=== PATIENT | female | born 1945 | race Caucasian/White ===

== ENCOUNTER 2019-11-16 14:01 | Emergency (ER) | payer MEDICARE, BC ==
[~2019-11-16] VITALS: Ht 167.6 cm; Wt 75.0 kg
[2019-11-16 15:48] LABS: CLARITY,URINE CLOUDY (Clear); COLOR,URINE YELLOW (Yellow); GLUCOSE, URINE 250 mg/dl (Neg); KETONES,URINE 15 mg/dl (Neg); LEUKOCYTE ESTERASE ,URINE MODERATE (Neg); NITRITES, URINE NEGATIVE (Neg); OCCULT BLOOD,URINE LARGE (Neg); PROTEIN,URINE 30 mg/dl (Neg)
[2019-11-16 15:49] LABS: BASOPHILS % (AUTO) 0.7 % (0-1); EOSINOPHILS # (AUTO) 0.2 X10'3 (0-0.9); EOSINOPHILS % (AUTO) 3.1 % (0-6); HEMATOCRIT 39.9 % (35.0-45.0); HEMOGLOBIN 13.4 g/dl (12.0-16.0); LYMPHOCYTES # (AUTO) 2.2 X10'3 (1.1-4.8); LYMPHOCYTES % (AUTO) 30.8 % (21-51); MEAN CORPUSCULAR HEMOGLOBIN 32.3 PG (27.0-31.0); MEAN CORPUSCULAR HGB CONC 33.6 g/dL (33.0-36.5); MEAN CORPUSCULAR VOLUME 96.2 FL (78-98); MEAN PLATELET VOLUME 10.1 FL (7.4-10.4); MONOCYTES # (AUTO) 1.1 X10'3 (0-0.9); MONOCYTES % (AUTO) 14.8 % (2-12); NEUTROPHILS # (AUTO) 3.7 X10'3 (1.8-7.7); NEUTROPHILS % (AUTO) 50.6 % (42-75); PLATELET COUNT 166 X10'3 (140-440); RED BLOOD COUNT 4.15 X10'6 (4.20-5.60); RED CELL DISTRIBUTION WIDTH 12.9 % (11.5-14.5); WHITE BLOOD COUNT 7.2 X10'3 (4.5-11.0)
[2019-11-16 15:57] LABS: UA COLLECTION TYPE CLN CATCH MIDSTREAM
[2019-11-16 16:00] LABS: MUCUS STRANDS FEW /LPF (Neg); SQUAMOUS EPITHELIAL CELL,UR MANY /LPF (FEW)
[2019-11-16 16:01] LABS: WBC,URINE TNTC /HPF (0-4)
[2019-11-16 16:02] LABS: RENAL CELLS, URINE FEW /HPF
[2019-11-16 16:04] LABS: ALANINE AMINOTRANSFERASE 37 U/L (12-78); ALBUMIN 3.4 G/DL (3.4-5.0); ALBUMIN/GLOBULIN RATIO 0.8 (1.1-1.5); ALKALINE PHOSPHATASE 93 IU/L (46-116); ANION GAP 11 (8-16); ASPARTATE AMINO TRANSFERASE 30 U/L (10-37); BILIRUBIN,TOTAL 0.5 MG/DL (0.1-1.0); BLOOD UREA NITROGEN 35 MG/DL (7-18); BUN/CREATININE RATIO 26.3 (6.6-38.0); CALCIUM 9.5 MG/DL (8.5-10.1); CHLORIDE 99 MMOL/L (99-107); CREATININE 1.33 MG/DL (0.40-0.90); GLUCOSE 249 MG/DL (70-104); POTASSIUM 3.3 MMOL/L (3.5-5.1); SODIUM 136 MMOL/L (135-145); TOTAL CARBON DIOXIDE 25.9 MMOL/L (24-32); TOTAL PROTEIN 7.9 G/DL (6.4-8.2); eGFR 39 ML/MIN
[2019-11-16 16:06] LABS: BACTERIA,URINE 4+ /HPF (Neg)
[2019-11-16] MEDS ORDERED: normal saline 1000ML IV soln IVB ONE (16:25)
[2019-11-16] MEDS ORDERED: insulin regular, human 10 units/0.1 ml syringe SQ ONE (16:25)
[2019-11-16] MEDS ORDERED: CefTRIAXone/D5W-Rocephin 1gm 50 ML IV ONE (16:25)
[2019-11-16] MEDS ORDERED: CEPH-572 PO (16:58)
[2019-11-16 19:06] VITALS: BP 139/59
== END 2019-11-16 19:10 | disposition home or self-care (01) ==
LOC: ER 14:02
DX: N39.0 Urinary tract infection, site not specified (principal); N17.9 Acute kidney failure, unspecified; R06.02 Shortness of breath; R51.9 Headache, unspecified; R53.83 Other fatigue; Z20.828 Contact with and (suspected) exposure to other viral communicable diseases; E78.00 Pure hypercholesterolemia, unspecified; E11.9 Type 2 diabetes mellitus without complications; Z90.49 Acquired absence of other specified parts of digestive tract; Z90.89 Acquired absence of other organs; Z95.0 Presence of cardiac pacemaker; Z98.890 Other specified postprocedural states; Z88.8 Allergy status to other drugs, medicaments and biological substances; Z79.2 Long term (current) use of antibiotics
CPT/HCPCS: 36415; 71045; 80053; 81001; 82948; 85025; 87635; 96365; 99284; J0696; J1815; J7030

== ENCOUNTER 2020-02-26 15:06 | Emergency (ER) | payer MEDICARE, BC ==
[~2020-02-26] VITALS: Ht 167.6 cm; Wt 78.2 kg
[2020-02-26 15:31] VITALS: BP 122/66
[2020-02-26] MEDS ORDERED: ondansetron 4mg rapidly disintigrating tab PO ONE (16:25)
[2020-02-26] MEDS ORDERED: HYDROcodone/acetaminophen 5mg/325mg tablet PO ONE (16:25)
[2020-02-26] MEDS ORDERED: ONDA4TAB6 PO (16:36)
[2020-02-26] MEDS ORDERED: HYDR-3965 PO (16:36)
== END 2020-02-26 17:13 | disposition home or self-care (01) ==
LOC: ER 15:07
DX: S92.351A Displaced fracture of fifth metatarsal bone, right foot, initial encounter for closed fracture (principal); M79.671 Pain in right foot; E78.00 Pure hypercholesterolemia, unspecified; E11.9 Type 2 diabetes mellitus without complications; Z90.49 Acquired absence of other specified parts of digestive tract; Z95.0 Presence of cardiac pacemaker; Z90.89 Acquired absence of other organs; Z98.890 Other specified postprocedural states; Z88.8 Allergy status to other drugs, medicaments and biological substances; Z79.899 Other long term (current) drug therapy; X58.XXXA Exposure to other specified factors, initial encounter; Y93.89 Activity, other specified; Y92.89 Other specified places as the place of occurrence of the external cause; Y99.8 Other external cause status
CPT/HCPCS: 29515; 73610; 73630; 99284

== ENCOUNTER 2021-03-09 12:00 | Day surgery (SDC) | payer MEDICARE, BC ==
[~2021-03-09 12:00] MED LIST: ONDA4TAB6 PO
[2021-03-09] MEDS ORDERED: HYDR12.55 PO (15:17)
[2021-03-09] MEDS ORDERED: MAGN250T11 PO (15:17)
[2021-03-09] MEDS ORDERED: METF-436 PO (15:17)
[2021-03-09] MEDS ORDERED: ROSU20TA2 PO (15:17)
[2021-03-09] MEDS ORDERED: METO-395 PO (15:17)
[2021-03-09] MEDS ORDERED: ESTR42.510 VG (15:17)
[2021-03-09] MEDS ORDERED: MULT-1085 PO (15:17)
[2021-03-09] MEDS ORDERED: [UNRECOGNIZED DRUG - CODE] PO (15:17)
[2021-03-09] MEDS ORDERED: TRAZ-251 PO (15:17)
[2021-03-09] MEDS ORDERED: CHOL500049 PO (15:17)
[2021-03-09] MEDS ORDERED: MIRA25TA PO (15:17)
[2021-03-09] MEDS ORDERED: BUPR150T8 PO (15:17)
[2021-03-09] MEDS ORDERED: AMA1T PO (15:17)
[2021-03-09 15:19] LABS: BASOPHILS % (AUTO) 0.3 % (0-1); EOSINOPHILS # (AUTO) 0.1 X10'3 (0-0.9); EOSINOPHILS % (AUTO) 0.9 % (0-6); LYMPHOCYTES # (AUTO) 2.1 X10'3 (1.1-4.8); LYMPHOCYTES % (AUTO) 25.7 % (21-51); MEAN CORPUSCULAR HEMOGLOBIN 32.2 PG (27.0-31.0); MEAN CORPUSCULAR HGB CONC 33.8 g/dL (33.0-36.5); MEAN CORPUSCULAR VOLUME 95.5 FL (78-98); MEAN PLATELET VOLUME 9.8 FL (7.4-10.4); MONOCYTES # (AUTO) 0.7 X10'3 (0-0.9); MONOCYTES % (AUTO) 8.2 % (2-12); NEUTROPHILS # (AUTO) 5.3 X10'3 (1.8-7.7); NEUTROPHILS % (AUTO) 64.9 % (42-75); PRE OP HEMATOCRIT 42.4 % (35.0-45.0); PRE OP HEMOGLOBIN 14.3 g/dL (12.0-16.0); PRE OP PLATELET COUNT 159 X10'3 (140-440); RED BLOOD COUNT 4.45 X10'6 (4.20-5.60); RED CELL DISTRIBUTION WIDTH 13.1 % (11.5-14.5)
[2021-03-09 15:23] LABS: CLARITY,URINE CLOUDY (Clear); COLOR,URINE YELLOW (Yellow); GLUCOSE, URINE >=1000 mg/dl (Neg); KETONES,URINE NEGATIVE (Neg); LEUKOCYTE ESTERASE ,URINE TRACE (Neg); NITRITES, URINE NEGATIVE (Neg); OCCULT BLOOD,URINE NEGATIVE (Neg); PH,URINE 5.5 (4.8-8.0); PROTEIN,URINE NEGATIVE (Neg); UROBILINOGEN,URINE 0.2 E.U/dL (0.2-1.0)
[2021-03-09 15:41] LABS: UA COLLECTION TYPE CLN CATCH MIDSTREAM
[2021-03-09 15:45] LABS: BACTERIA,URINE 1+ /HPF (Neg); MUCUS STRANDS FEW /LPF (Neg); RBC,URINE NONE SEEN /HPF (0-2); SQUAMOUS EPITHELIAL CELL,UR MANY /LPF (FEW); WBC,URINE 50-100 /HPF (0-4)
[2021-03-09 15:58] LABS: ALBUMIN 3.7 G/DL (3.4-5.0); ALBUMIN/GLOBULIN RATIO 1.1 (1.1-1.5); ALKALINE PHOSPHATASE 113 IU/L (46-116); BLOOD UREA NITROGEN 24 MG/DL (7-18); CALCIUM 9.1 MG/DL (8.5-10.1); CHLORIDE 101 MMOL/L (99-107); CREATININE 1.33 MG/DL (0.40-0.90); PRE OP ALT 26 U/L (30-65); PRE OP ANION GAP 13 (8-16); PRE OP AST 20 U/L (10-37); PRE OP BILIRUB, TOTAL 0.2 MG/DL (0.0-1.0); PRE OP POTASSIUM 4.4 MMOL/L (3.4-5.1); PRE OP SODIUM 137 MMOL/L (135-145); TOTAL PROTEIN 7.1 G/DL (6.4-8.2); eGFR 39 ML/MIN
[2021-03-09 16:02] LABS: PRE OP GLUCOSE 336 MG/DL (70-104)
[2021-03-09 16:36] LABS: HEMOGLOBIN A1C 9.9 % (4.5-6.2)
== END 2021-03-09 23:59 | disposition home or self-care (01) ==
LOC: PRE-OP 12:00
PROVIDERS: ATTEND Podiatrist Foot & Ankle Surgery
DX: Z01.818 Encounter for other preprocedural examination (principal); M19.072 Primary osteoarthritis, left ankle and foot; M20.12 Hallux valgus (acquired), left foot; M20.42 Other hammer toe(s) (acquired), left foot; M21.6X2 Other acquired deformities of left foot; M25.375 Other instability, left foot; M77.42 Metatarsalgia, left foot; E11.9 Type 2 diabetes mellitus without complications; F32.A Depression, unspecified; I10 Essential (primary) hypertension; Z85.89 Personal history of malignant neoplasm of other organs and systems; Z95.0 Presence of cardiac pacemaker; Z20.822 Contact with and (suspected) exposure to COVID-19; Z79.899 Other long term (current) drug therapy; Z90.49 Acquired absence of other specified parts of digestive tract; Z98.41 Cataract extraction status, right eye; Z98.42 Cataract extraction status, left eye; Z98.890 Other specified postprocedural states
CPT/HCPCS: 36415; 80053; 81001; 83036; 85025; U0003; U0005

== ENCOUNTER 2021-05-14 06:54 | Day surgery (SDC) | payer MEDICARE, BC ==
[2021-05-04 16:40] LABS: BASOPHILS % (AUTO) 0.4 % (0-1); EOSINOPHILS # (AUTO) 0.2 X10'3 (0-0.9); EOSINOPHILS % (AUTO) 2.6 % (0-6); LYMPHOCYTES # (AUTO) 2.7 X10'3 (1.1-4.8); LYMPHOCYTES % (AUTO) 35.8 % (21-51); MEAN CORPUSCULAR HGB CONC 33.1 g/dL (33.0-36.5); MEAN CORPUSCULAR VOLUME 96.6 FL (78-98); MONOCYTES # (AUTO) 0.6 X10'3 (0-0.9); MONOCYTES % (AUTO) 8.2 % (2-12); PRE OP HEMATOCRIT 41.3 % (35.0-45.0); PRE OP HEMOGLOBIN 13.7 g/dL (12.0-16.0); PRE OP PLATELET COUNT 145 X10'3 (140-440); RED BLOOD COUNT 4.28 X10'6 (4.20-5.60); RED CELL DISTRIBUTION WIDTH 13.8 % (11.5-14.5)
[2021-05-04 16:40] LABS: CLARITY,URINE SLIGHTLY CLOUDY (Clear); COLOR,URINE YELLOW (Yellow); GLUCOSE, URINE >=1000 mg/dl (Neg); KETONES,URINE NEGATIVE (Neg); LEUKOCYTE ESTERASE ,URINE NEGATIVE (Neg); NITRITES, URINE NEGATIVE (Neg); OCCULT BLOOD,URINE NEGATIVE (Neg); PH,URINE 5.5 (4.8-8.0); PROTEIN,URINE NEGATIVE (Neg); UROBILINOGEN,URINE 0.2 E.U/dL (0.2-1.0)
[2021-05-04 16:43] LABS: UA COLLECTION TYPE CLN CATCH MIDSTREAM
[2021-05-04 16:51] LABS: MUCUS STRANDS FEW /LPF (Neg); SQUAMOUS EPITHELIAL CELL,UR MANY /LPF (FEW)
[2021-05-04 16:52] LABS: BACTERIA,URINE FEW /HPF (Neg); RBC,URINE 0-2 /HPF (0-2); WBC,URINE 0-4 /HPF (0-4)
[2021-05-04 16:53] LABS: ALBUMIN 3.7 G/DL (3.4-5.0); ALKALINE PHOSPHATASE 85 IU/L (46-116); BLOOD UREA NITROGEN 20 MG/DL (7-18); BUN/CREATININE RATIO 20.4 (6.6-38.0); CALCIUM 8.6 MG/DL (8.5-10.1); CHLORIDE 107 MMOL/L (99-107); CREATININE 0.98 MG/DL (0.40-0.90); PRE OP ALT 23 U/L (30-65); PRE OP ANION GAP 11 (8-16); PRE OP AST 18 U/L (10-37); PRE OP BILIRUB, TOTAL 0.2 MG/DL (0.0-1.0); PRE OP GLUCOSE 198 MG/DL (70-104); PRE OP POTASSIUM 3.8 MMOL/L (3.4-5.1); PRE OP SODIUM 143 MMOL/L (135-145); TOTAL PROTEIN 7.3 G/DL (6.4-8.2); eGFR 55 ML/MIN
[~2021-05-14] VITALS: Ht 167.6 cm; Wt 79.7 kg
[2021-05-14] VITALS (7 sets, daily range): BP systolic 104–135; BP diastolic 49–80
[~2021-05-14 06:54] MED LIST changes: +AMA1T PO; +BUPR150T8 PO; +CHOL500049 PO; +DOCUMENT DATE & TIME OF BETA-BLOCKER PO ONE; +EMPA10TA PO; +ESTR42.510 VG; +HYDR12.55 PO; +METF-436 PO; +METO-395 PO; +MIRA25TA PO; +MULT-1085 PO; -ONDA4TAB6 PO; +ROSU20TA2 PO; +TRAZ-251 PO; +[UNRECOGNIZED DRUG - CODE] PO; +cefazolin/dext.iso 2gm/50ml IV ONE; +famotidine 20mg tablet PO ONE; +ringers solution, lacted 1,000 ML IV SCH
[2021-05-14] MEDS ORDERED: FENTANYL CITRATE/PF 50 MCG/1 ML VIAL ONE (10:44)
[2021-05-14] MEDS ORDERED: dexamethasone sod phosphate 4mg/ml inj. ONE (10:45)
[2021-05-14] MEDS ORDERED: ondansetron/PF 4mg/2ml inj ONE (10:45)
[2021-05-14] MEDS ORDERED: ROPIVAcaine 0.5% (5mg/ml) 30ml vial ONE (10:45)
[2021-05-14] MEDS ORDERED: propofol inj 20 ML IV ONE (10:45)
[2021-05-14] MEDS ORDERED: bacitracin 15gm ointment TP ONE ×2 (11:03→11:24)
[2021-05-14] MEDS ORDERED: morphine 4 MG/ML inj SYRINge IV PRN (11:20)
[2021-05-14] MEDS ORDERED: fentaNYL/PF 50MCG/1 ML 2ML syringe IV PRN ×2 (11:20)
[2021-05-14] MEDS ORDERED: ringers solution, lacted 1,000 ML IV SCH (11:20)
[2021-05-14] MEDS ORDERED: morphine 2 MG/ML inj. syringe IV PRN (11:20)
[2021-05-14] MEDS ORDERED: hydrALAZINE 20mg/ml inj. IV PRN (11:20)
[2021-05-14] MEDS ORDERED: enalaprilat dihydrate 2.5mg/2ml vial IV PRN (11:20)
[2021-05-14] MEDS ORDERED: ondansetron/PF 4mg/2ml inj IV PRN (11:20)
[2021-05-14] MEDS ORDERED: BUPIVAcaine 0.5% inj/PF 30 ml vial IJ ONE (11:23)
--- NOTE | 2021-05-14 12:08 | NUR ---
Received from OR via , accompanied by Anesthesiologist DR BAJWA and report given by Anesthesiolgist. AWAKENS TO VOICE. VITALS STABLE. DRESSING DI. LORETA PAIN.SURGICAL SHOE ON LT FOOT.
--- NOTE | 2021-05-14 13:18 | NUR ---
AWAKE AND ORIENTED. VITALS STABLE. DRESSING DI. LORETA PAIN. HOME WITH A FRIEND AT THIS TIME.
== END 2021-05-14 13:18 | disposition home or self-care (01) ==
LOC: PAS 06:54
PROVIDERS: ATTEND Podiatrist Foot & Ankle Surgery
DX: M19.072 Primary osteoarthritis, left ankle and foot (principal); M20.12 Hallux valgus (acquired), left foot; M20.42 Other hammer toe(s) (acquired), left foot; G89.18 Other acute postprocedural pain; I10 Essential (primary) hypertension; F32.A Depression, unspecified; E11.9 Type 2 diabetes mellitus without complications; Z79.84 Long term (current) use of oral hypoglycemic drugs; Z79.899 Other long term (current) drug therapy; Z79.82 Long term (current) use of aspirin; Z98.41 Cataract extraction status, right eye; Z98.42 Cataract extraction status, left eye; Z98.890 Other specified postprocedural states; Z90.49 Acquired absence of other specified parts of digestive tract; Z95.0 Presence of cardiac pacemaker; Z85.820 Personal history of malignant melanoma of skin; Z20.822 Contact with and (suspected) exposure to COVID-19
CPT/HCPCS: 28285; 28750; 36415; 64447; 64450; 73620; 76000; 80053; 81001; 82948; 85025; A6223; C1713; J1100; J2405; J2704; J2795; J3010; J7030; J7120; U0003; U0005; Z7506; Z7508; Z7512; A4215; A4618; A6449; A7000; S0020

== ENCOUNTER → 2023-01-20 | Day surgery (SDC) | payer MEDICARE, BC ==
[2023-01-20] VITALS (11 sets, daily range): BP systolic 103–126; BP diastolic 50–76; PULSE 76–85; RESP 10–22; TEMP 97.9; O2SAT 92–96
[~2023-01-20] VITALS: Ht 167.6 cm; Wt 72.6 kg
[~2023-01-20] MED LIST changes: +CYAN50009 PO; -DOCUMENT DATE & TIME OF BETA-BLOCKER PO ONE; +EMPA25TA PO; +GLIM4TAB7 PO; +LIDOcaine 1% W/epiNEPHrine 1:100,000 20ml vial ONE; +METO25TA6 PO; +ROSU20TA73 PO; +VANCOMYCIN 1,500MG in NS 300ml IVPB IV ONE; +cefazolin 2gm/D5W 100mL 100 ML IV ONE; -cefazolin/dext.iso 2gm/50ml IV ONE; -famotidine 20mg tablet PO ONE; +fentaNYL/PF 50MCG/1 ML 2ML syringe ONE; +midazolam 1 mg/ML 2ml injection ONE; +normal saline 1000ml 1,000 ML IV SCH; -ringers solution, lacted 1,000 ML IV SCH; +vancomycin 1,000mg inj ONE
[2023-01-20 07:34] LABS: BASOPHILS % (AUTO) 0.5 % (0-1); EOSINOPHILS # (AUTO) 0.2 X10'3 (0-0.9); EOSINOPHILS % (AUTO) 2.8 % (0-6); HEMATOCRIT 42.5 % (35.0-45.0); HEMOGLOBIN 13.9 g/dl (12.0-16.0); LYMPHOCYTES # (AUTO) 2.1 X10'3 (1.1-4.8); LYMPHOCYTES % (AUTO) 30.2 % (21-51); MEAN CORPUSCULAR HEMOGLOBIN 31.8 PG (27.0-31.0); MEAN CORPUSCULAR HGB CONC 32.7 g/dL (33.0-36.5); MONOCYTES # (AUTO) 0.7 X10'3 (0-0.9); MONOCYTES % (AUTO) 10.3 % (2-12); NEUTROPHILS # (AUTO) 3.9 X10'3 (1.8-7.7); NEUTROPHILS % (AUTO) 56.2 % (42-75); PLATELET COUNT 128 X10'3 (140-440); RED BLOOD COUNT 4.38 X10'6 (4.20-5.60)
[2023-01-20 07:36] LABS: APTT 23 SECONDS (22-32); PROTHROMBIN TIME 10.4 SECONDS (9.0-12.0)
[2023-01-20 07:39] LABS: ALANINE AMINOTRANSFERASE 27 U/L (12-78); ALBUMIN 3.8 G/DL (3.4-5.0); ALBUMIN/GLOBULIN RATIO 1.1 (1.1-1.5); ALKALINE PHOSPHATASE 66 IU/L (46-116); ANION GAP 13 (8-16); ASPARTATE AMINO TRANSFERASE 19 U/L (10-37); BILIRUBIN,TOTAL 0.6 MG/DL (0.1-1.0); BLOOD UREA NITROGEN 27 MG/DL (7-18); BUN/CREATININE RATIO 26.5 (10.0-20.0); CHLORIDE 102 MMOL/L (99-107); CREATININE 1.02 MG/DL (0.40-0.90); GLUCOSE 138 MG/DL (70-104); MAGNESIUM 1.6 MG/DL (1.5-2.4); POTASSIUM 3.8 MMOL/L (3.5-5.1); SODIUM 139 MMOL/L (135-145); TOTAL CARBON DIOXIDE 23.6 MMOL/L (24-32); TOTAL PROTEIN 7.2 G/DL (6.4-8.2); eCRCL 44 ML/MIN; eGFR 53 ML/MIN
== END | disposition home or self-care (01) ==
LOC: SSTAY O 06:13
PROVIDERS: ATTEND Internal Medicine Cardiovascular Disease
DX: Z45.010 Encounter for checking and testing of cardiac pacemaker pulse generator [battery] (principal); I42.9 Cardiomyopathy, unspecified; I44.7 Left bundle-branch block, unspecified; E11.9 Type 2 diabetes mellitus without complications; I10 Essential (primary) hypertension; F32.A Depression, unspecified; E78.2 Mixed hyperlipidemia; Z90.49 Acquired absence of other specified parts of digestive tract; Z98.890 Other specified postprocedural states; Z79.84 Long term (current) use of oral hypoglycemic drugs; Z79.899 Other long term (current) drug therapy; Z72.89 Other problems related to lifestyle; Z98.49 Cataract extraction status, unspecified eye; Z79.01 Long term (current) use of anticoagulants; Z88.8 Allergy status to other drugs, medicaments and biological substances; Z82.49 Family history of ischemic heart disease and other diseases of the circulatory system
CPT/HCPCS: 33229; 36415; 80053; 82948; 83735; 85025; 85610; 85730; 93005; 99152; 99153; C2621; J2250; J3010; J3370; J3490; J7030; J7040

== ENCOUNTER 2023-04-07 08:53 | Day surgery (SDC) | payer MEDICARE, BC ==
[2023-04-07] VITALS (10 sets, daily range): BP systolic 109–135; BP diastolic 53–76; PULSE 65–75; RESP 13–17; O2SAT 94–98
[~2023-04-07] VITALS: Ht 167.6 cm; Wt 69.0 kg
[~2023-04-07 08:53] MED LIST changes: -AMA1T PO; -EMPA10TA PO; -ESTR42.510 VG; -LIDOcaine 1% W/epiNEPHrine 1:100,000 20ml vial ONE; -METO-395 PO; -ROSU20TA2 PO; -VANCOMYCIN 1,500MG in NS 300ml IVPB IV ONE; -[UNRECOGNIZED DRUG - CODE] PO; -cefazolin 2gm/D5W 100mL 100 ML IV ONE; -fentaNYL/PF 50MCG/1 ML 2ML syringe ONE; -midazolam 1 mg/ML 2ml injection ONE; -normal saline 1000ml 1,000 ML IV SCH; -vancomycin 1,000mg inj ONE
[2023-04-07] MEDS ORDERED: sodium bicarbonate 1meq/ml syr 150 ML in dextrose 5%-water 1,000 ML IV SCH (09:15)
[2023-04-07] MEDS ORDERED: GABA300C PO (09:34)
[2023-04-07] MEDS ORDERED: TIRZ5PEN SQ (09:34)
[2023-04-07] MEDS ORDERED: iohexol 350MG/ML 100ml bottle IV ONE (09:46)
[2023-04-07] MEDS ORDERED: heparin 1,000unit/ml 10ml vial 10 ML ONE (09:46)
[2023-04-07] MEDS ORDERED: LIDOcaine 1% (10mg/ml) 2ml vial ONE (09:46)
[2023-04-07] MEDS ORDERED: midazolam 1 mg/ML 2ml injection ONE ×2 (09:46→10:25)
[2023-04-07] MEDS ORDERED: fentaNYL/PF 50MCG/1 ML 2ML syringe ONE (09:46)
[2023-04-07] MEDS ORDERED: iohexol 350 MG/ML 50ML vial IV ONE (09:46)
[2023-04-07] MEDS ORDERED: verapamil 2.5 mg/ml inj IV ONE (09:46)
[2023-04-07] MEDS ORDERED: nitroGLYCERIN 500mcg/5mL D5W 5 ML IV ONE (09:47)
[2023-04-07] MEDS: diphenhydrAMINE 25mg capsule PO PRN (09:50)
[2023-04-07] MEDS: normal saline 1,000 ML IV SCH (09:51)
[2023-04-07 10:14] LABS: BASOPHILS % (AUTO) 0.4 % (0-1); EOSINOPHILS # (AUTO) 0.1 X10'3 (0-0.9); EOSINOPHILS % (AUTO) 2.2 % (0-6); HEMATOCRIT 38.7 % (35.0-45.0); HEMOGLOBIN 12.9 g/dl (12.0-16.0); LYMPHOCYTES # (AUTO) 1.9 X10'3 (1.1-4.8); LYMPHOCYTES % (AUTO) 28.1 % (21-51); MEAN CORPUSCULAR HEMOGLOBIN 32.1 PG (27.0-31.0); MEAN CORPUSCULAR HGB CONC 33.2 g/dL (33.0-36.5); MEAN CORPUSCULAR VOLUME 96.5 FL (78-98); MEAN PLATELET VOLUME 10.1 FL (7.4-10.4); MONOCYTES # (AUTO) 0.6 X10'3 (0-0.9); MONOCYTES % (AUTO) 9.4 % (2-12); NEUTROPHILS # (AUTO) 4.1 X10'3 (1.8-7.7); NEUTROPHILS % (AUTO) 59.9 % (42-75); PLATELET COUNT 129 X10'3 (140-440); RED BLOOD COUNT 4.01 X10'6 (4.20-5.60); RED CELL DISTRIBUTION WIDTH 13.8 % (11.5-14.5); WHITE BLOOD COUNT 6.8 X10'3 (4.5-11.0)
[2023-04-07 10:28] LABS: PROTHROMBIN TIME 10.8 SECONDS (9.0-12.0)
[2023-04-07 10:43] LABS: ALBUMIN 3.5 G/DL (3.4-5.0); ANION GAP 14 (8-16); BLOOD UREA NITROGEN 28 MG/DL (7-18); BUN/CREATININE RATIO 29.5 (10.0-20.0); CALCIUM 8.3 MG/DL (8.5-10.1); CHLORIDE 109 MMOL/L (99-107); CREATININE 0.95 MG/DL (0.40-0.90); GLUCOSE 168 MG/DL (70-104); MAGNESIUM 1.7 MG/DL (1.5-2.4); POTASSIUM 3.4 MMOL/L (3.5-5.1); SODIUM 145 MMOL/L (135-145); TOTAL CARBON DIOXIDE 22.2 MMOL/L (24-32); eCRCL 47 ML/MIN; eGFR 57 ML/MIN
[2023-04-07] MEDS ORDERED: HYDROcodone/acetaminophen 5mg/325mg tablet PO PRN (11:30)
[2023-04-07] MEDS ORDERED: proCHLORperazine 10 MG/2 ml inj IV PRN (11:30)
[2023-04-07] MEDS ORDERED: ondansetron/PF 4mg/2ml inj IV PRN (11:30)
[2023-04-07] MEDS ORDERED: HYDROcodone/acetaminophen 10/325mg tab PO PRN (11:30)
[2023-04-07] MEDS ORDERED: normal saline 1000ml 1,000 ML IV SCH (11:30)
== END 2023-04-07 15:20 | disposition home or self-care (01) ==
LOC: CATH LAB 08:53 → SSTAY O 15:20
PROVIDERS: ATTEND Internal Medicine Cardiovascular Disease
DX: R07.89 Other chest pain (principal); I25.10 Atherosclerotic heart disease of native coronary artery without angina pectoris; E78.5 Hyperlipidemia, unspecified; E11.9 Type 2 diabetes mellitus without complications; I10 Essential (primary) hypertension; I42.9 Cardiomyopathy, unspecified; F32.A Depression, unspecified; I44.7 Left bundle-branch block, unspecified; Z72.89 Other problems related to lifestyle; Z88.8 Allergy status to other drugs, medicaments and biological substances; Z95.0 Presence of cardiac pacemaker; Z79.899 Other long term (current) drug therapy; Z98.890 Other specified postprocedural states; Z90.49 Acquired absence of other specified parts of digestive tract; Z98.49 Cataract extraction status, unspecified eye; Z82.49 Family history of ischemic heart disease and other diseases of the circulatory system
CPT/HCPCS: 36415; 80048; 83735; 85025; 85610; 93005; 93458; 99152; 99153; J1644; J2250; J3010; J3490; J7030; Q0163; Q9967; C1894

== ENCOUNTER 2023-05-12 13:48 | Emergency (ER) | payer MEDICARE, BC ==
[~2023-05-12] VITALS: Ht 167.6 cm; Wt 67.6 kg
[~2023-05-12 13:48] MED LIST changes: +GABA300C PO; -GLIM4TAB7 PO; +TIRZ5PEN SQ
[2023-05-12 15:31] VITALS: BP 95/68; PULSE 71; RESP 15; TEMP 98.6; O2SAT 96
== END 2023-05-12 15:35 | disposition home or self-care (01) ==
LOC: ER 13:49
DX: M79.642 Pain in left hand (principal); N17.9 Acute kidney failure, unspecified; E78.00 Pure hypercholesterolemia, unspecified; E11.9 Type 2 diabetes mellitus without complications; I49.9 Cardiac arrhythmia, unspecified; Z95.0 Presence of cardiac pacemaker; Z90.49 Acquired absence of other specified parts of digestive tract; Z88.8 Allergy status to other drugs, medicaments and biological substances
CPT/HCPCS: 73130; 99284

== ENCOUNTER 2023-05-19 12:15 | Emergency (ER) | payer MEDICARE, BC ==
[~2023-05-19] VITALS: Ht 167.6 cm; Wt 69.1 kg
[2023-05-19 12:46] VITALS: BP 119/68; PULSE 72; RESP 16; TEMP 98.2; O2SAT 97
== END 2023-05-19 15:14 | disposition home or self-care (01) ==
LOC: ER 12:17
DX: M79.642 Pain in left hand (principal); E78.00 Pure hypercholesterolemia, unspecified; E11.9 Type 2 diabetes mellitus without complications; Z90.49 Acquired absence of other specified parts of digestive tract; Z95.0 Presence of cardiac pacemaker; I49.9 Cardiac arrhythmia, unspecified; Z88.8 Allergy status to other drugs, medicaments and biological substances
CPT/HCPCS: 29125; 73130; 99284

== ENCOUNTER 2023-12-29 07:01 | Day surgery (SDC) | payer MEDICARE, BC ==
[2023-12-29] VITALS (8 sets, daily range): BP systolic 99–128; BP diastolic 41–55; PULSE 65–91; RESP 12–16; TEMP 98.1; O2SAT 95–99
[~2023-12-29] VITALS: Ht 165.1 cm; Wt 64.7 kg
[~2023-12-29 07:01] MED LIST changes: -ROSU20TA73 PO; +ROSU20TA98 PO
[2023-12-29] MEDS ORDERED: ceFAZolin/D5W- 1GM premix 50 ML IV ONE (07:45)
[2023-12-29] MEDS ORDERED: ceFAZolin 2gm in dextrose, iso 50 ML IV ONE (07:55)
[2023-12-29 08:01] LABS: BASOPHILS % (AUTO) 0.5 % (0-1); EOSINOPHILS # (AUTO) 0.2 X10'3 (0-0.9); EOSINOPHILS % (AUTO) 3.6 % (0-6); HEMATOCRIT 38.5 % (35.0-45.0); HEMOGLOBIN 13.1 g/dl (12.0-16.0); LYMPHOCYTES # (AUTO) 1.9 X10'3 (1.1-4.8); LYMPHOCYTES % (AUTO) 33.3 % (21-51); MEAN CORPUSCULAR HEMOGLOBIN 32.8 PG (27.0-31.0); MEAN CORPUSCULAR HGB CONC 34.1 g/dL (33.0-36.5); MEAN CORPUSCULAR VOLUME 96.1 FL (78-98); MEAN PLATELET VOLUME 10.1 FL (7.4-10.4); MONOCYTES # (AUTO) 0.7 X10'3 (0-0.9); MONOCYTES % (AUTO) 12.5 % (2-12); NEUTROPHILS # (AUTO) 2.8 X10'3 (1.8-7.7); NEUTROPHILS % (AUTO) 50.1 % (42-75); PLATELET COUNT 137 X10'3 (140-440); RED BLOOD COUNT 4.01 X10'6 (4.20-5.60); WHITE BLOOD COUNT 5.6 X10'3 (4.5-11.0)
[2023-12-29 08:15] LABS: PROTHROMBIN TIME 10.3 SECONDS (9.0-12.0)
[2023-12-29 08:22] LABS: ALBUMIN 3.8 G/DL (3.4-5.0); ANION GAP 9 (8-16); BLOOD UREA NITROGEN 27 MG/DL (7-18); BUN/CREATININE RATIO 33.8 (10.0-20.0); CHLORIDE 106 MMOL/L (99-107); GLUCOSE 126 MG/DL (70-104); MAGNESIUM 1.6 MG/DL (1.5-2.4); POTASSIUM 3.9 MMOL/L (3.5-5.1); SODIUM 140 MMOL/L (135-145); TOTAL CARBON DIOXIDE 25.3 MMOL/L (24-32); eCRCL 53 ML/MIN; eGFR 70 ML/MIN
[2023-12-29] MEDS: VANCOMYCIN 1GM 200ML H20 (PEG) 200 ML IV ONE (08:35)
[2023-12-29] MEDS ORDERED: LIDOcaine 1% W/epiNEPHrine 1:100,000 20ml vial ONE (08:42)
[2023-12-29] MEDS ORDERED: fentaNYL/PF 50MCG/1 ML 2ML syringe ONE ×2 (08:43→09:46)
[2023-12-29] MEDS ORDERED: vancomycin 1,000mg inj ONE (08:43)
[2023-12-29] MEDS ORDERED: midazolam 1 mg/ML 2ml injection ONE ×3 (08:43→09:46)
[2023-12-29] MEDS ORDERED: normal saline 1000ml 1,000 ML IV SCH (11:15)
== END 2023-12-29 12:15 | disposition home or self-care (01) ==
LOC: SSTAY O 07:01
PROVIDERS: ATTEND Internal Medicine Cardiovascular Disease
DX: I44.7 Left bundle-branch block, unspecified (principal); I42.9 Cardiomyopathy, unspecified; I10 Essential (primary) hypertension; E11.9 Type 2 diabetes mellitus without complications; E78.5 Hyperlipidemia, unspecified; F32.A Depression, unspecified; Z79.84 Long term (current) use of oral hypoglycemic drugs; Z79.899 Other long term (current) drug therapy; Z90.49 Acquired absence of other specified parts of digestive tract; Z90.89 Acquired absence of other organs; Z96.652 Presence of left artificial knee joint; Z98.49 Cataract extraction status, unspecified eye; Z98.890 Other specified postprocedural states; Z88.8 Allergy status to other drugs, medicaments and biological substances; Z82.49 Family history of ischemic heart disease and other diseases of the circulatory system
CPT/HCPCS: 33222; 36415; 80048; 82948; 83735; 85025; 85610; 93005; 99152; 99153; J2250; J3010; J3370; J3372; J3490; J7030